=== PATIENT | female | born 1960 | race Two or more races ===

== ENCOUNTER → 2019-07-15 | Outpatient (CLI) | payer OTHER | END | disposition home or self-care (01) | LOC: RAD 12:37 | DX: R05 Cough (principal) ==

== ENCOUNTER 2019-07-31 08:05 | Day surgery (SDC) | payer OTHER ==
[~2019-07-31 08:05] MED LIST: IBERSARTAN PO; SYNTHROID75 MCG PO; ZETIA10 MG PO
== END 2019-07-31 17:15 | disposition home or self-care (01) ==
LOC: CIR.AMB 08:05 → ADM 15:00 → CIR.AMB 15:00
DX: D25.0 Submucous leiomyoma of uterus (principal); N84.0 Polyp of corpus uteri